=== PATIENT | female | born 1950 | race Native Hawaiian/Other Pacific Islander ===

== ENCOUNTER → 2023-02-04 10:50 | Outpatient (CLI) | payer OTHER, SELFPAY ==
--- NOTE | 2023-02-04 10:56 | DI.MRI.S_ITS ---
PROCEDURE: MR HEAD/BRAIN WO/W CON INDICATIONS: Cerebral infarction, unspecified TECHNIQUE: Noncontrast axial T1 spin echo, axial T2 fast spin echo, sagittal and axial FLAIR, coronal T2 fast spin echo, axial gradient echo, axial diffusion and ADC through the brain. After the administration of contrast, axial and coronal and sagittal 3D VIBE or T1 spin echo with fat saturation through the brain. COMPARISON: None. FINDINGS: Image quality: Excellent. CSF Spaces: Basal cisterns are patent. No extra-axial fluid collections. Ventricles are normal in size and shape. Brain: There is a ring-enhancing lesion in the left posterior insular and parietal operculum cortex. Lesion measures roughly 3.6 x 2.0 by 1.5 cm with mass effect and vigorous surrounding vasogenic edema. Vague ill-defined restricted diffusion noted within and surrounding the lesion, most consistent with dense cell packing. Mild mass effect present. No midline shift. No old blood products present. Underlying atrophy and confluent white matter chronic ischemic change present noted particularly in the right cerebral hemisphere. Brainstem and infratentorial structures unremarkable Skull and face: Calvarial marrow is normal in signal. Orbits appear normal. Bilateral intraocular lens replacements noted. Sinuses: Sinuses and mastoids appear clear. IMPRESSION: Left insular and parietal ring-enhancing lesion most consistent with aggressive appearing neoplasm. Less likely differential would include subacute infarct with and cortical pseudolaminar necrosis and luxury perfusion. Consider 4-6 week interval follow-up Approved by: Darrius Blakely M.D. on 02/04/2023 at 11:21
== END ==
PROVIDERS: PCP Physician Assistant Medical; Referring Provider Physician Assistant Medical; Visit Provider Physician Assistant Medical
DX: I63.9 Cerebral infarction, unspecified (principal); G93.9 Disorder of brain, unspecified
CPT/HCPCS: 70553; A9579

== ENCOUNTER → 2023-02-14 17:29 | Outpatient (CLI) | payer SELFPAY ==
--- NOTE | 2023-02-14 | DI.CT.S_ITS ---
PROCEDURE: CT HEAD/BRAIN WO CON INDICATIONS: abrasion of unspecified part of head TECHNIQUE: Noncontrast 4.5 mm thick angled axial sections acquired from the foramen magnum to the vertex, with coronal and sagittal reformats. For radiation dose reduction, the following was used: automated exposure control, adjustment of mA and/or kV according to patient size. COMPARISON: [facility], MR, MR HEAD/BRAIN WO/W CON, 02/04/2023, 11:06. FINDINGS: Image quality: Excellent. CSF spaces: Basal cisterns are patent. No extra-axial fluid collections. The ventricles are symmetric in size and shape. Brain: Ill-defined area mass effect in the left insular/parietal cortex with adjacent edema, unchanged compared to 02/04/2023.. There is cerebral volume loss for age, with resultant ventricular and sulcal prominence. There are periventricular and deep white matter chronic small vessel ischemic changes. There is intracranial internal carotid artery atherosclerosis. Skull and face: Calvarium and visualized facial bones appear intact, without suspicious lesions. Sinuses: Visualized sinuses and mastoids are clear. IMPRESSION: 1. No acute intracranial process, stable interval exam compared to 02/04/2023, noting masslike focus with vasogenic edema in the left insular and parietal cortex. 2. Moderate atrophy and chronic microvascular ischemic changes. A message with callback number was left for Phylicia Nabil on 02/14/2023 at 6:47 p.m who was not available at time of call. Dictated by: Catherine Sotelo M.D. on 02/14/2023 at 18:45 Approved by: Catherine Sotelo M.D. on 02/14/2023 at 18:49
== END ==
PROVIDERS: PCP Physician Assistant Medical; Visit Provider Physician Assistant Medical
DX: G93.6 Cerebral edema (principal); S00.91XA Abrasion of unspecified part of head, initial encounter; I65.29 Occlusion and stenosis of unspecified carotid artery; W19.XXXA Unspecified fall, initial encounter
CPT/HCPCS: 70450

== ENCOUNTER 2023-03-24 13:41 | Inpatient (IN) | payer OTHER, SELFPAY ==
[2023-03-24] VITALS (20 sets, daily range): BP systolic 143–180; BP diastolic 66–81; PULSE 60–88; RESP 12–24; TEMP 36.1–36.6; O2SAT 93–100; BMI 21.2
[2023-03-24] MEDS: PANTOPRAZOLE 40 MG VIAL 80 MG IV (14:12)
[2023-03-24 14:19] LABS: Add Manual Diff / Slide Review NO; Basophils Absolute Auto 0 /uL (0-100); Basophils Percent Auto 0.2 % (0-2); Eosinophils Absolute Auto 0 /uL (0-450); Hematocrit 44.2 % (36-46); Hemoglobin 14.6 g/dL (12.0-16.0); Lymphocytes Absolute Auto 300 /uL (1100-4500); Lymphocytes Percent Auto 1.6 % (25-40); Mean Corpuscular Hemoglobin 28.9 PG (26-34); Mean Corpuscular Volume 87.6 fL (80-100); Monocytes Absolute Auto 300 /uL (0-900); Monocytes Percent Auto 1.6 % (3-14); Neutrophils Absolute Auto 15800 /uL (1500-7000); Neutrophils Percent Auto 96.6 % (50-75); Platelet Count 140 X10^3/uL (150-400); Red Blood Cell Count 5.05 X10^6/uL (4.0-5.2); Red Cell Distribution Width 13.2 % (11.6-14.8); White Blood Cell Count 16.3 X10^3/uL (4.5-11.0)
--- NOTE | 2023-03-24 14:24 | PC.NURSE ---
pt shaking head yes and no to questions, daughter reports that she doesn't want to be here or be poked and probed; daughter asks this RN if we offer vitamin C infusions. daughter educated. pt on all monitoring equipment; currently denies pain/sob/cp/dizziness. pt denies needs/concerns. warm blanket offered, refused. call light within reach.
[2023-03-24 14:26] LABS: INR 0.8 (0.9-1.3); Prothrombin Time 9.4 SECONDS (9.4-12.5)
[2023-03-24 14:29] LABS: PTT Partial Thromboplastin Tim 20 SECONDS (25.1-36.5)
[2023-03-24 14:31] LABS: Alanine Aminotransferase 41 IU/L (<35); Albumin 3.5 g/dL (3.5-5.0); Albumin Globulin Ratio 1.3 (1.0-2.8); Alkaline Phosphatase 136 U/L (38-126); Aspartate Aminotransferase 36 IU/L (14-36); BUN Creatinine Ratio 44.5 (6-22); Bilirubin Total 1.9 mg/dL (0.2-1.3); Blood Urea Nitrogen 49 mg/dL (7-17); Calcium 9.2 mg/dL (8.4-10.2); Carbon Dioxide 27 mmol/L (22-32); Chloride 98 mmol/L (98-107); Estimated Glomerular Filt Rate 53 mL/min (>60); Globulin 2.7 g/dL (1.7-4.1); Glucose 353 mg/dL (80-110); HEMOLYSIS < 15 (0-50); Potassium 5.1 mmol/L (3.4-5.1); Sodium 130 mmol/L (137-145); Total Protein 6.2 g/dL (6.3-8.2)
--- NOTE | 2023-03-24 15:17 | PC.NURSE ---
BOX STRAPPER note: pt. requested assistance to the bathroom, this rehabilitation aide/scheduler procured a wheelchair and assisted pt. into wheelchair to bathroom. daughter at pt. side, assisted pt. in the restroom. An attempt was made to collect a urine specimen, however, pt. had already used the bathroom in the brief she was wearing. Gave a new brief to pt. daughter who remained in the bathroom with pt.
--- NOTE | 2023-03-24 15:46 | ED_ITS ---
HPI - GI Bleed General Chief complaint: GI Bleed Stated complaint: blood in urine/stools black Time Seen by Provider: 03/24/23 15:46 Source: family Mode of arrival: Wheelchair History of Present Illness HPI Narrative: Patient is a 72-year-old female who speaks Tagalog, daughter at bedside reports dark stool today. 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 She had an MRI here 02/04/2023 which did show a ring enhancing lesion with aggressive appearing neoplasm. She is been started on home physical therapy and speech therapy concerning for stroke. Daughter states that she seems to be more ?watts? than normal and she gets angry with caregivers and refuses medications at times. Does not seem any more somnolent or confused today. She noted that there was some very dark stool today concerning for blood. She has been taking aspirin and dexamethasone. She also has a history of a liver transplant for hepatitis-B and is on anti- rejection medications. Patient is resting comfortably. Related Data Home Medications Medication Instructions Recorded Confirmed amlodipine 2.5 mg tablet 2.5 mg PO DAILY blood pressure 03/24/23 03/24/23 aspirin 81 mg tablet 81 mg PO DAILY 03/24/23 03/24/23 dexamethasone 4 mg tablet 4 mg PO QID 03/24/23 03/24/23 entecavir 0.5 mg tablet 0.5 mg PO DAILY 03/24/23 03/24/23 ferrous sulfate 324 mg (65 mg 324 mg PO DAILY 03/24/23 03/24/23 iron) tablet,delayed release mycophenolate mofetil 500 mg tablet 500 mg PO BID 03/24/23 03/24/23 pantoprazole 40 mg tablet,delayed 40 mg PO DAILY 03/24/23 03/24/23 release polyethylene glycol 3350 17 gram 17 g PO DAILY PRN Constipation 03/24/23 03/24/23 oral powder packet (Miralax) rosuvastatin 10 mg tablet 10 mg PO QPM 03/24/23 03/24/23 sennosides 8.6 mg tablet (senna) 17.2 mg PO BID PRN Constipation 03/24/23 03/24/23 tacrolimus 0.5 mg capsule, 0.5 mg PO BID liver transplant 03/24/23 03/24/23 immediate-release ursodiol 250 mg tablet 250 mg PO BID 03/24/23 03/24/23 Allergies Allergy/AdvReac Type Severity Reaction Status Date / Time No Known Drug Allergies Allergy Verified 03/24/23 13:56 Patient History Medical History (Updated 03/24/23 @ 18:28 by Donna Fish DO) High cholesterol 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 Surgical History (Updated 03/24/23 @ 16:05 by Glenda Ho RN) H/O liver transplant Social History Smoking Status: Unknown if ever smoked Smoking Status: Unknown if ever smoked alcohol intake frequency: holidays/special occasions only Substance Use Type: does not use Exam Initial Vital Signs Initial Vital Signs: Vital Signs Temperature 97.8 F 03/24/23 13:43 Pulse Rate 88 03/24/23 13:43 Respiratory Rate 14 03/24/23 13:43 Blood Pressure 156/72 H 03/24/23 13:43 Pulse Oximetry 93 03/24/23 13:43 Oxygen Delivery Method Room Air 03/24/23 13:43 GENERAL: Alert comfortable appearing 72-year-old female HEENT: Head atraumatic,EOMI, pupils reactive, face symmetric, moist mucous membranes CARDIOVASCULAR: Regular rate and rhythm without murmurs, rubs or gallops. RESPIRATORY: Breath sounds equal bilaterally, no wheezes rales or rhonchi. ABDOMEN: Soft, nontender. Normoactive bowel sounds all 4 quadrants. No guarding or rebound. RECTAL: Dark stool hemoccult positive EXTREMITIES: Normal range of motion, no clubbing or edema. Neurovascularly intact NEUROLOGICAL: Facial droop moving all extremities SKIN: Warm, dry, no laceration, no petechiae, no rashes or lesions. Course Orders Ordered: ED Orders 03/24/23 14:00 Complete Blood Count AUTO DIFF Stat Comprehensive Metabolic Panel Stat Lactate (Lactic Acid) Stat MAG [Magnesium] Stat PTT Partial Thromboplastin Kurt Stat Procalcitonin Stat Prothrombin Time INR Stat Troponin & CK Cardiac Panel Stat Type and Screen Stat 03/24/23 14:07 EKG-12 Lead Stat 03/24/23 15:26 Ictotest Urine Stat Urinalysis and Microscopic Stat Urine Culture Stat 03/24/23 15:58 CT abdomen pelvis w con Stat CT head/brain wo con Stat 03/24/23 17:23 Blood Culture Stat Ondansetron HCl (Ondansetron 4 Mg/2 Ml Inj) 4 mg IV NOW PRN PRN Reason: Nausea And Vomiting Discontinued Medications Dexamethasone (Dexamethasone 4 Mg/Ml Vial) 4 mg IV NOW ONE Stop: 03/24/23 17:00 Last Admin: 03/24/23 17:12 Dose: 4 mg Documented By: CAITLIN Ceftriaxone Sodium 1,000 mg/ (Sodium Chloride) 100 mls @ 200 mls/hr IV NOW ONE Stop: 03/24/23 16:48 Last Infusion: 03/24/23 17:57 Dose: Infused Documented By: Admin: 03/24/23 17:25 Dose: 200 mls/hr Documented By: CAITLIN Pantoprazole Sodium (Pantoprazole 40 Mg Vial) 80 mg IV NOW ONE Stop: 03/24/23 13:56 Last Admin: 03/24/23 14:12 Dose: 80 mg Documented By: TORRI Vital Signs Vital signs: Vital Signs - 8 hr 03/24/23 13:43 03/24/23 13:54 03/24/23 13:54 Temperature 97.8 F Pulse Rate 88 78 Respiratory Rate 14 Blood Pressure 156/72 H 156/72 H Pulse Oximetry 93 93 Oxygen Delivery Method Room Air 03/24/23 14:00 03/24/23 14:00 03/24/23 14:30 Temperature Pulse Rate 71 Respiratory Rate 24 Blood Pressure 151/67 H 143/66 H Pulse Oximetry 99 Oxygen Delivery Method 03/24/23 14:30 03/24/23 15:00 03/24/23 15:00 Temperature Pulse Rate 66 68 Respiratory Rate 15 17 Blood Pressure 155/72 H Pulse Oximetry 100 98 Oxygen Delivery Method 03/24/23 15:32 03/24/23 15:34 03/24/23 15:34 Temperature Pulse Rate 70 60 Respiratory Rate 24 22 Blood Pressure 145/67 H Pulse Oximetry 100 99 Oxygen Delivery Method Room Air 03/24/23 16:00 03/24/23 16:00 03/24/23 16:21 Temperature Pulse Rate 66 Respiratory Rate 12 Blood Pressure 146/66 H 180/81 H Pulse Oximetry 99 Oxygen Delivery Method Room Air 03/24/23 16:21 03/24/23 16:30 03/24/23 16:30 Temperature Pulse Rate 72 67 Respiratory Rate 13 16 Blood Pressure 171/73 H Pulse Oximetry 99 98 Oxygen Delivery Method Room Air 03/24/23 17:00 03/24/23 17:00 03/24/23 17:30 Temperature Pulse Rate 71 74 Respiratory Rate 16 22 Blood Pressure 151/74 H Pulse Oximetry 98 100 Oxygen Delivery Method Room Air 03/24/23 17:30 03/24/23 18:00 03/24/23 18:00 Temperature Pulse Rate 70 Respiratory Rate 21 Blood Pressure 150/70 H 155/74 H Pulse Oximetry 99 Oxygen Delivery Method Room Air MDM - GI Bleed Lab Data 03/24/23 14:00 03/24/23 14:00 Labs: Lab Results 03/24/23 03/24/23 Range/Units 14:00 15:26 WBC 16.3 H (4.5-11.0) X10^3/uL RBC 5.05 (4.0-5.2) X10^6/uL Hgb 14.6 (12.0-16.0) g/dL Hct 44.2 (36-46) % MCV 87.6 (80-100) fL MCH 28.9 (26-34) PG MCHC 33.0 (30-36) % RDW 13.2 (11.6-14.8) % Plt Count 140 L (150-400) X10^3/uL Neut % (Auto) 96.6 H (50-75) % Lymph % (Auto) 1.6 L (25-40) % Pershing % (Auto) 1.6 L (3-14) % Eos % (Auto) 0.0 L (2-4) % Baso % (Auto) 0.2 (0-2) % Neut # (Auto) 89323 H (3761-8462) /uL Lymph # (Auto) 300 L (0613-9835) /uL Pershing # (Auto) 300 (0-900) /uL Eos # (Auto) 0 (0-450) /uL Baso # (Auto) 0 (0-100) /uL PT 9.4 (9.4-12.5) SECONDS INR 0.8 L (0.9-1.3) APTT 20 L (25.1-36.5) SECONDS Sodium 130 L (137-145) mmol/L Potassium 5.1 (3.4-5.1) mmol/L Chloride 98 (98-107) mmol/L Carbon Dioxide 27 (22-32) mmol/L BUN 49 H (7-17) mg/dL Creatinine 1.10 H (0.52-1.04) mg/dL Estimated GFR 53 L (>60) mL/min BUN/Creatinine Ratio 44.5 H (6-22) Glucose 353 H (80-110) mg/dL Lactate 2.2 H (0.7-2.1) mmol/L Calcium 9.2 (8.4-10.2) mg/dL Magnesium 3.2 H (1.6-2.3) mg/dL Total Bilirubin 1.9 H (0.2-1.3) mg/dL AST 36 (14-36) IU/L ALT 41 H (<35) IU/L Alkaline Phosphatase 136 H (38-126) U/L Total Creatine Kinase 61 (30-135) U/L Troponin I 0.021 (0.01-0.034) ng/mL Total Protein 6.2 L (6.3-8.2) g/dL Albumin 3.5 (3.5-5.0) g/dL Globulin 2.7 (1.7-4.1) g/dL Albumin/Globulin Ratio 1.3 (1.0-2.8) Procalcitonin 0.14 (<0.5) ng/mL Urine Color Yellow Urine Appearance Cloudy Urine pH 5.0 (4.5-8.0) Ur Specific Dinosaur 1.025 (1.000-1.035) Urine Protein Negative (Negative) Urine Glucose (UA) 3+ H (Negative) g/dL Urine Ketones Trace H (NEGATIVE) Urine Occult Blood 3+ H (Negative) Urine Nitrate Positive H (Negative) Urine Bilirubin 1+ H (NEGATIVE) Ur Bilirubin Confirm TNP Urine Urobilinogen 1.0 (0.2) E.U./dL Ur Leukocyte Esterase 2+ H (NEGATIVE) Urine RBC 10-30/hpf H (0-5/HPF) Urine WBC 10-30/hpf H (0-5/HPF) Ur Squamous Epith Cells 5-10 /hpf H (0-5/HPF) Urine Bacteria Moderate (10-30) H (None) RBC Casts 1-5/lpf H (None) WBC Casts 1-5/lpf H (None) Ur Culture Indicated? Specimen cultured Blood Type B Positive Antibody Screen Negative Imaging Data CT scan - abdomen/pelvis: Radiologist's Impression: PROCEDURE: CT ABDOMEN PELVIS W CON INDICATIONS: gi bleed TECHNIQUE: After the administration of intravenous contrast, axial sections acquired from the lung bases to the pubic symphysis. Coronal and sagittal reformats were performed. For radiation dose reduction, the following was used: automated exposure control, adjustment of mA and/or kV according to patient size. COMPARISON: None. FINDINGS: Image quality: Excellent. Lung bases: Unremarkable. Heart: No significant findings. ABDOMEN: Liver: Unremarkable. Gallbladder: Not identified. Biliary ducts: Mild central biliary ductal dilation and prominence of the common hepatic duct. Pancreas: Unremarkable. Spleen: Unremarkable. Adrenal Glands: Unremarkable. Kidneys and Ureters: Unremarkable. Stomach and Bowel: Stomach, small bowel loops, and colon are unremarkable. Scattered diverticula. No evidence of extravasation. Peritoneum: No abnormal intraperitoneal fluid. No free air. Ventral Wall: No hernias. Abdominal Nodes: No retroperitoneal or mesenteric adenopathy by size criteria. Vessels: Aorta and inferior vena cava are normal in size. PELVIS: Pelvic Organs: Unremarkable. Bladder: Emphysematous changes of the bladder wall. Pelvic Nodes: No enlarged lymph nodes. Miscellaneous: No hernias are seen. Bones: Unremarkable. IMPRESSION: Emphysematous cystitis. No arterial extravasation identified. Dr. Pina discussed the above findings with the ordering provider at 3:48 p.m. [place] time 03/24/2023 Dictated by: Elton Pina M.D. on 03/24/2023 at 15:36 CT scan - head: Radiologist's Impression: PROCEDURE: CT HEAD/BRAIN WO CON INDICATIONS: known glioblastoma TECHNIQUE: Noncontrast 4.5 mm thick angled axial sections acquired from the foramen magnum to the vertex, with coronal and sagittal reformats. For radiation dose reduction, the following was used: automated exposure control, adjustment of mA and/or kV according to patient size. COMPARISON: [place], PET/CT SKULL BASE TO MID THIGH, 06/13/2013, 10:49. [facility], MR, MR HEAD/BRAIN WO/W CON, 02/04/2023, 11:06. [facility], CT, CT HEAD/BRAIN WO CON, 02/14/2023, 17:52. FINDINGS: Image quality: Excellent. CSF spaces: Basal cisterns are patent. No extra-axial fluid collections. The ventricles are symmetric in size and shape. Brain: There is a 2.1 x 2.7 cm mass in the left parietal lobe. There is vasogenic edema in the left hemisphere. No mass effect or midline shift. No intracranial bleeds. There is cerebral volume loss for age, with resultant ventricular and sulcal prominence. There are periventricular and deep white matter chronic small vessel ischemic changes. There is intracranial internal carotid artery atherosclerosis. Skull and face: Calvarium and visualized facial bones appear intact, without suspicious lesions. Sinuses: Visualized sinuses and mastoids are clear. IMPRESSION: 1. No acute intracranial pathology. 2. A 2.1 x 2.7 cm mass in the left parietal lobe with marked vasogenic edema. Overall, there is no significant change from the last exam. No midline shift. Dictated by: Yang Alvarez M.D. on 03/24/2023 at 16:27 ECG Data Interpretation: Sinus rhythm rate 72 UT interval 128 QRS 84 QTC 422 no changes although possible repolarization no depressions no T-wave inversions no priors to compare MDM Narrative Medical decision making narrative: Patient is 72-year-old female presents today with darkened stool. She has new diagnosis of presumed glioblastoma by awaiting biopsy. Elevated BUN creatinine ratio with a BUN of 49 creatinine of 1.1 consistent with upper GI bleed. Vitals are stable hemoglobin hematocrit are stable. Abdominal CT done with due to recent cancer diagnosis but at and GI bleeding but abdomen is soft nontender. CT shows an emphysematous bladder. She does have nitrates urinalysis consistent with UTI. Leukocytosis 16 with elevated lactate of 2.2. Concern for UTI as well. Blood pressure has been stable without tachycardia or fever. Blood cultures are pending. Patient is on nuclear monitoring technician she does some minor arrhythmias occasionally no prior history of acute coronary syndrome. Patient is given a dose of Rocephin Discussed case with Dr. Rodriguez about emphysematous bladder reports would caution against Bueno catheter and treat with antibiotics. Dr. Denis consulted in regards to upper GI bleed. Reports that they can do an EGD tomorrow. Dr. Melendez updated on patient's symptoms test results and accepts patient Discharge Plan Departure Patient Disposition: Admitted as Observation Clinical Impression: Acute upper GI bleed, Acute UTI, Glioblastoma
--- NOTE | 2023-03-24 15:58 | DI.CT.S_ITS ---
PROCEDURE: CT ABDOMEN PELVIS W CON INDICATIONS: gi bleed TECHNIQUE: After the administration of intravenous contrast, axial sections acquired from the lung bases to the pubic symphysis. Coronal and sagittal reformats were performed. For radiation dose reduction, the following was used: automated exposure control, adjustment of mA and/or kV according to patient size. COMPARISON: None. FINDINGS: Image quality: Excellent. Lung bases: Unremarkable. Heart: No significant findings. ABDOMEN: Liver: Unremarkable. Gallbladder: Not identified. Biliary ducts: Mild central biliary ductal dilation and prominence of the common hepatic duct. Pancreas: Unremarkable. Spleen: Unremarkable. Adrenal Glands: Unremarkable. Kidneys and Ureters: Unremarkable. Stomach and Bowel: Stomach, small bowel loops, and colon are unremarkable. Scattered diverticula. No evidence of extravasation. Peritoneum: No abnormal intraperitoneal fluid. No free air. Ventral Wall: No hernias. Abdominal Nodes: No retroperitoneal or mesenteric adenopathy by size criteria. Vessels: Aorta and inferior vena cava are normal in size. PELVIS: Pelvic Organs: Unremarkable. Bladder: Emphysematous changes of the bladder wall. Pelvic Nodes: No enlarged lymph nodes. Miscellaneous: No hernias are seen. Bones: Unremarkable. IMPRESSION: Emphysematous cystitis. No arterial extravasation identified. Dr. Pina discussed the above findings with the ordering provider at 3:48 p.m. [place] time 03/24/2023 Dictated by: Elton Pina M.D. on 03/24/2023 at 15:36 Approved by: Elton Pina M.D. on 03/24/2023 at 15:49
--- NOTE | 2023-03-24 15:58 | DI.CT.S_ITS ---
PROCEDURE: CT HEAD/BRAIN WO CON INDICATIONS: known glioblastoma TECHNIQUE: Noncontrast 4.5 mm thick angled axial sections acquired from the foramen magnum to the vertex, with coronal and sagittal reformats. For radiation dose reduction, the following was used: automated exposure control, adjustment of mA and/or kV according to patient size. COMPARISON: NM, PET/CT SKULL BASE TO MID THIGH, 06/13/2013, 10:49. [facility], MR, MR HEAD/BRAIN WO/W CON, 02/04/2023, 11:06. [facility], CT, CT HEAD/BRAIN WO CON, 02/14/2023, 17:52. FINDINGS: Image quality: Excellent. CSF spaces: Basal cisterns are patent. No extra-axial fluid collections. The ventricles are symmetric in size and shape. Brain: There is a 2.1 x 2.7 cm mass in the left parietal lobe. There is vasogenic edema in the left hemisphere. No mass effect or midline shift. No intracranial bleeds. There is cerebral volume loss for age, with resultant ventricular and sulcal prominence. There are periventricular and deep white matter chronic small vessel ischemic changes. There is intracranial internal carotid artery atherosclerosis. Skull and face: Calvarium and visualized facial bones appear intact, without suspicious lesions. Sinuses: Visualized sinuses and mastoids are clear. IMPRESSION: 1. No acute intracranial pathology. 2. A 2.1 x 2.7 cm mass in the left parietal lobe with marked vasogenic edema. Overall, there is no significant change from the last exam. No midline shift. Dictated by: Yang Alvarez M.D. on 03/24/2023 at 16:27 Approved by: Yang Alvarez M.D. on 03/24/2023 at 16:33
[2023-03-24 16:00] LABS: Creatine Kinase 61 U/L (30-135); Magnesium 3.2 mg/dL (1.6-2.3)
[2023-03-24 16:08] LABS: Appearance Urine UA CLOUDY; Bilirubin Urine UA 1+ (NEGATIVE); Color Urine UA YELLOW; Glucose Urine UA 3+ g/dL (Negative); Ketones Urine UA TRACE (NEGATIVE); Leukocyte Esterase Urine UA 2+ (NEGATIVE); Nitrite Urine UA POSITIVE (Negative); Occult Blood Urine UA 3+ (Negative); Protein Urine UA NEGATIVE (Negative); Specific Gravity Urine UA 1.025 (1.000-1.035)
[2023-03-24 16:11] LABS: Bacteria Urine Moderate (10-30); Culture Indicated Urine Specimen Cultured; RBC Urine 10-30/HPF (0-5/HPF); Red Blood Cell Casts Urine 1-5/LPF; Squamous Epithelial Cell Urine 5-10 /HPF (0-5/HPF); WBC Urine 10-30/HPF (0-5/HPF); White Blood Cell Casts Urine 1-5/LPF
[2023-03-24 16:13] LABS: Troponin I 0.021 ng/mL (0.01-0.034)
[2023-03-24] MEDS: DEXAMETHASONE 4 MG/ML VIAL IV (17:12)
[2023-03-24] MEDS: cefTRIAXone 1,000 MG in SODIUM CHLORIDE 0.9% 100 ML 200 MG IV (17:25)
[2023-03-24 17:39] LABS: Lactate (Lactic Acid) 2.2 mmol/L (0.7-2.1)
[2023-03-24 17:57] LABS: Procalcitonin 0.14 ng/mL (<0.5)
--- NOTE | 2023-03-24 18:36 | PC.NURSE ---
Noted short (< 20 seconds) of what appears to be afib rvr vs. sinus tach. Returned to sinus rhythm @ 67.
[2023-03-24 19:09] LABS: Reflexed Lactate in 2 Hours Y
[2023-03-24 19:36] LABS: Lactate 2HR (Lactic Acid Rflx) 1.4 mmol/L (0.7-2.1)
--- NOTE | 2023-03-24 22:05 | P.HP_ITS ---
History of Present Illness History of Present Illness Date Patient Seen: 03/24/23 Time Patient Seen: 22:05 Chief complaint: blood in urine/stools black Narrative: The pt was brought to the ER by her daughter who care for her due to having black stools when she went to the bathroom today. The pt only speaks Tagalog and family were not at the bedside during my interview. She was very confused and unable to answer any questions or follow commands. The pt's medical history is significant for having a liver transplant for chronic Hepatitis B and on immunosuppresents now and recently was diagnosed with a brain tumor, a aggressive form of gliosis. MRI in January showed a ring enhancing lesion and todays CT scan of the head reviewed by myself showed a 2.1 X 2.7 cm left periatal lesion significantly larger with surrounding edema. 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 Surgical History (Updated 03/24/23 @ 16:05 by Glenda Ho RN) H/O liver transplant Social History Smoking Status: Unknown if ever smoked Meds Home Medications and Allergies Home Medications Medication Instructions Recorded Confirmed Type amlodipine 2.5 mg tablet 2.5 mg PO DAILY blood pressure 03/24/23 03/24/23 History aspirin 81 mg tablet 81 mg PO DAILY 03/24/23 03/24/23 History dexamethasone 4 mg tablet 4 mg PO QID 03/24/23 03/24/23 History entecavir 0.5 mg tablet 0.5 mg PO DAILY 03/24/23 03/24/23 History ferrous sulfate 324 mg (65 mg 324 mg PO DAILY 03/24/23 03/24/23 History iron) tablet,delayed release mycophenolate mofetil 500 mg tablet 500 mg PO BID 03/24/23 03/24/23 History pantoprazole 40 mg tablet,delayed 40 mg PO DAILY 03/24/23 03/24/23 History release polyethylene glycol 3350 17 gram 17 g PO DAILY PRN Constipation 03/24/23 03/24/23 History oral powder packet (Miralax) rosuvastatin 10 mg tablet 10 mg PO QPM 03/24/23 03/24/23 History sennosides 8.6 mg tablet (senna) 17.2 mg PO BID PRN Constipation 03/24/23 03/24/23 History tacrolimus 0.5 mg capsule, 0.5 mg PO BID liver transplant 03/24/23 03/24/23 History immediate-release ursodiol 250 mg tablet 250 mg PO BID 03/24/23 03/24/23 History Allergies Allergy/AdvReac Type Severity Reaction Status Date / Time No Known Drug Allergies Allergy Verified 03/24/23 13:56 Exam Vital Signs (past 8 hours): - 03/24/23 14:30 03/24/23 14:30 03/24/23 15:00 Pulse Rate 66 68 Respiratory Rate 15 17 Blood Pressure 143/66 H Pulse Oximetry 100 98 Oxygen Delivery Method 03/24/23 15:00 03/24/23 15:32 03/24/23 15:34 Pulse Rate 70 60 Respiratory Rate 24 22 Blood Pressure 155/72 H Pulse Oximetry 100 99 Oxygen Delivery Method Room Air 03/24/23 15:34 03/24/23 16:00 03/24/23 16:00 Pulse Rate 66 Respiratory Rate 12 Blood Pressure 145/67 H 146/66 H Pulse Oximetry 99 Oxygen Delivery Method Room Air 03/24/23 16:21 03/24/23 16:21 03/24/23 16:30 Pulse Rate 72 Respiratory Rate 13 Blood Pressure 180/81 H 171/73 H Pulse Oximetry 99 Oxygen Delivery Method 03/24/23 16:30 03/24/23 17:00 03/24/23 17:00 Pulse Rate 67 71 Respiratory Rate 16 16 Blood Pressure 151/74 H Pulse Oximetry 98 98 Oxygen Delivery Method Room Air Room Air 03/24/23 17:30 03/24/23 17:30 03/24/23 18:00 Pulse Rate 74 70 Respiratory Rate 22 21 Blood Pressure 150/70 H Pulse Oximetry 100 99 Oxygen Delivery Method Room Air 03/24/23 18:00 03/24/23 18:30 03/24/23 18:30 Pulse Rate 68 Respiratory Rate 16 Blood Pressure 155/74 H 147/81 H Pulse Oximetry 99 Oxygen Delivery Method 03/24/23 19:00 03/24/23 19:00 03/24/23 19:30 Pulse Rate 71 Respiratory Rate 17 Blood Pressure 166/76 H 154/79 H Pulse Oximetry 99 Oxygen Delivery Method 03/24/23 19:30 12/09/23 20:00 03/24/23 20:00 Pulse Rate 71 74 Respiratory Rate 13 14 Blood Pressure 152/78 H Pulse Oximetry 98 98 Oxygen Delivery Method Room Air 03/24/23 20:30 03/24/23 20:30 Pulse Rate 70 Respiratory Rate 14 Blood Pressure 165/79 H Pulse Oximetry 98 Oxygen Delivery Method Room Air Oxygen Delivery Method Room Air Const General: combative and disheveled Resp Auscultation: clear to auscultation bilaterally Cardio Rate: regular rate Rhythm: regular rhythm Neuro General: patient confused Objective Labs 03/24/23 14:00 03/24/23 14:00 Labs: Laboratory Results - last 24 hr 03/24/23 03/24/23 03/24/23 14:00 15:26 17:23 WBC 16.3 H RBC 5.05 Hgb 14.6 Hct 44.2 MCV 87.6 MCH 28.9 MCHC 33.0 RDW 13.2 Plt Count 140 L Neut % (Auto) 96.6 H Lymph % (Auto) 1.6 L [place] % (Auto) 1.6 L Eos % (Auto) 0.0 L Baso % (Auto) 0.2 Neut # (Auto) 18551 H Lymph # (Auto) 300 L [place] # (Auto) 300 Eos # (Auto) 0 Baso # (Auto) 0 PT 9.4 INR 0.8 L APTT 20 L Sodium 130 L Potassium 5.1 Chloride 98 Carbon Dioxide 27 BUN 49 H Creatinine 1.10 H Estimated GFR 53 L BUN/Creatinine Ratio 44.5 H Glucose 353 H Lactate 2.2 H 1.4 Calcium 9.2 Magnesium 3.2 H Total Bilirubin 1.9 H AST 36 ALT 41 H Alkaline Phosphatase 136 H Total Creatine Kinase 61 Troponin I 0.021 Total Protein 6.2 L Albumin 3.5 Globulin 2.7 Albumin/Globulin Ratio 1.3 Procalcitonin 0.14 Urine Color Yellow Urine Appearance Cloudy Urine pH 5.0 Ur Specific [place] 1.025 Urine Protein Negative Urine Glucose (UA) 3+ H Urine Ketones Trace H Urine Occult Blood 3+ H Urine Nitrate Positive H Urine Bilirubin 1+ H Ur Bilirubin Confirm TNP Urine Urobilinogen 1.0 Ur Leukocyte Esterase 2+ H Urine RBC 10-30/hpf H Urine WBC 10-30/hpf H Ur Squamous Epith Cells 5-10 /hpf H Urine Bacteria Moderate (10-30) H RBC Casts 1-5/lpf H WBC Casts 1-5/lpf H Ur Culture Indicated? 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 No jimenez catheter for now until culture results are back. THe pt is very confused at this time, CT head reviewed showing the enlarging mass in the left parietal lobe. CHecking ammonia but labs reviewed which showed a low sodium, which could account for the confusion. Holding the cellcept due to her UTI and confusion, Gen surgery has been consulted through the ER for a EGD in the am, she will be NPO after midnight, current hgb is stable at 14.6, recheck in am.
[2023-03-24] MEDS: SODIUM CHLORIDE 0.9% 1,000 ML 125 ML IV (23:57)
[2023-03-25] VITALS (14 sets, daily range): BP systolic 124–182; BP diastolic 55–82; PULSE 53–73; RESP 11–18; TEMP 36–37.3; O2SAT 95–100; BMI 20.5
--- NOTE | 2023-03-25 | PATH_ITS ---
[facility] Accession Number: [id number] No. of containers..03 Tissue . 01 Material submitted: . PART A: duodenum - DUODENAL PART B: stomach - ANTRUM PART C: FUNDUS - FUNDUS . 01 Diagnosis: A. Duodenum, Biopsy: Duodenal mucosa with no diagnostic abnormality. Negative for active inflammation, features of sprue, dysplasia, or malignancy. . B. Stomach, Antrum, Biopsy: Antral mucosa with mild chronic inflammation and features suggestive of acute erosive gastritis. Negative for Helicobacter by immunohistochemistry. Negative for intestinal metaplasia. Negative for dysplasia and malignancy. . C. Stomach, Fundus, Biopsy: Body type mucosa with mild chronic gastritis and embedded non-polarizable foreign material positive for iron by iron stain. Negative for Helicobacter by immunohistochemistry. Negative for intestinal metaplasia. Negative for dysplasia and malignancy. [facility] 04/04/2023 1620 Local . 01 Electronically signed: . Lizz Acevedo MD, Pathologist NPI- [id number] . 01 Gross description: . Part A: DUODENAL: Received in formalin are 3 fragment(s) of mon, soft tissue measuring 0.1 x 0.1 x 0.1 cm to 0.3 x 0.3 x 0.2 cm submitted entirely in 1 cassette(s) Part B: ANTRUM: Received in formalin are 4 fragment(s) of mon, soft tissue measuring 0.1 x 0.1 x 0.1 cm to 0.3 x 0.2 x 0.2 cm submitted entirely in 1 cassette(s) Part C: FUNDUS: Received in formalin are 4 fragment(s) of mon, soft tissue measuring 0.1 x 0.1 x 0.1 cm to 0.3 x 0.2 x 0.2 cm submitted entirely in 1 cassette(s) /JUAN 03/26/2023 2240 Local . 01 Microscopic: . B. An immunohistochemical stain was performed to evaluate for Helicobacter organisms and is negative. The control stain showed appropriate reactivity. . C. An immunohistochemical stain was performed to evaluate for Helicobacter organisms and is negative. The control stain showed appropriate reactivity. . An iron stain was performed to evaluate nonpolarizable material identified on the H/E stain and is positive for iron. The control stain showed appropriate reactivity. . . * This test was developed and its performance characteristics determined by [facility]. It has not been cleared or approved by the U.S. Food and Drug Administration. The FDA has determined that such clearance or approval is not necessary. This test is used for clinical purposes. It should not be regarded as investigational or for research. . 01 Pathologist provided ICD-10: R10.9, K29.50 . 01 CPT . 725437, 891040, 463613, Y27530, 668168 Specimen Comment: A courtesy copy of this report has been sent to [phone] Performed at: 01 [facility] [address] [place] [address], [place], [place] [id number] MD Tito Hanley MD Phone: [phone]
--- NOTE | 2023-03-25 01:45 | PC.NURSE ---
shiftman: Patient arrived onto the floor from the ED @ 2044, ambulated from stretcher to bed w/ 1 PA. Patient is alert, confused, and Tagalog-speaking. VSS, hypertensive (164/72), HR 64, O2 98% on RA. When asked if she had any pain, pt stated i'm fine. Unable to follow commands. Cleaned up patient & changed into gown, pt had small black smear in brief w/ urinary incontinence. Pt experienced pain when wiping the rectal area, no open area/sores noted. IV in LAC infusing NS @125/hr. NPO for EGD in the morning. Called daughter (Day) who assisted in providing information for the admission assessment. Day requested to be updated in the future regarding patient's care ([phone]). Call-light within reach, fall precautions in place.
[2023-03-25 04:56] LABS: Add Manual Diff / Slide Review NO; Basophils Absolute Auto 0 /uL (0-100); Basophils Percent Auto 0.2 % (0-2); Eosinophils Absolute Auto 0 /uL (0-450); Hematocrit 38.7 % (36-46); Hemoglobin 13.1 g/dL (12.0-16.0); Lymphocytes Absolute Auto 300 /uL (1100-4500); Lymphocytes Percent Auto 3.1 % (25-40); Mean Corpuscular HGB Conc 33.9 % (30-36); Mean Corpuscular Hemoglobin 29.5 PG (26-34); Monocytes Absolute Auto 300 /uL (0-900); Monocytes Percent Auto 3.1 % (3-14); Neutrophils Absolute Auto 9200 /uL (1500-7000); Neutrophils Percent Auto 93.6 % (50-75); Platelet Count 108 X10^3/uL (150-400); Red Blood Cell Count 4.46 X10^6/uL (4.0-5.2); Red Cell Distribution Width 12.8 % (11.6-14.8); White Blood Cell Count 9.8 X10^3/uL (4.5-11.0)
[2023-03-25 05:03] LABS: INR 0.9 (0.9-1.3); Prothrombin Time 10.2 SECONDS (9.4-12.5)
[2023-03-25 05:08] LABS: Ammonia (NH3) < 9 umol/L (9-30)
[2023-03-25 05:09] LABS: Alanine Aminotransferase 36 IU/L (<35); Albumin 2.9 g/dL (3.5-5.0); Albumin Globulin Ratio 1.2 (1.0-2.8); Alkaline Phosphatase 107 U/L (38-126); Aspartate Aminotransferase 25 IU/L (14-36); Bilirubin Total 1.4 mg/dL (0.2-1.3); Blood Urea Nitrogen 41 mg/dL (7-17); Calcium 8.9 mg/dL (8.4-10.2); Carbon Dioxide 27 mmol/L (22-32); Chloride 104 mmol/L (98-107); Estimated Glomerular Filt Rate 56 mL/min (>60); Globulin 2.5 g/dL (1.7-4.1); Glucose 231 mg/dL (80-110); HEMOLYSIS < 15 (0-50); Potassium 4.9 mmol/L (3.4-5.1); Sodium 133 mmol/L (137-145); Total Protein 5.4 g/dL (6.3-8.2)
--- NOTE | 2023-03-25 08:10 | PM.PN.1 ---
Subjective Subjective Interval history: Underwent EGD which showed small non-bleeding gastric ulcers. Hgb has been stable. Spoke with daughter who will pick patient up late tomorrow for discharge after work. Exam Vital Signs (past 8 hours): GEN: no acute distress, sleeping HEENT: moist mucous membranes, PERRL NECK: trachea midline, no JVD CV: regular rate and rhythm, no murmurs PULM: clear bilaterally ABD: soft, nontender, nondistended, no organomegaly EXT: warm and well perfused with no edema NEURO: confused, no focal deficits Objective Labs 03/25/23 04:40 03/25/23 04:40 Labs: Laboratory Results - last 24 hr 03/24/23 03/24/23 03/24/23 14:00 15:26 17:23 WBC 16.3 H RBC 5.05 Hgb 14.6 Hct 44.2 MCV 87.6 MCH 28.9 MCHC 33.0 RDW 13.2 Plt Count 140 L Neut % (Auto) 96.6 H Lymph % (Auto) 1.6 L [place] % (Auto) 1.6 L Eos % (Auto) 0.0 L Baso % (Auto) 0.2 Neut # (Auto) 90604 H Lymph # (Auto) 300 L [place] # (Auto) 300 Eos # (Auto) 0 Baso # (Auto) 0 PT 9.4 INR 0.8 L APTT 20 L Sodium 130 L Potassium 5.1 Chloride 98 Carbon Dioxide 27 BUN 49 H Creatinine 1.10 H Estimated GFR 53 L BUN/Creatinine Ratio 44.5 H Glucose 353 H Lactate 2.2 H 1.4 Calcium 9.2 Magnesium 3.2 H Total Bilirubin 1.9 H AST 36 ALT 41 H Alkaline Phosphatase 136 H Ammonia Total Creatine Kinase 61 Troponin I 0.021 Total Protein 6.2 L Albumin 3.5 Globulin 2.7 Albumin/Globulin Ratio 1.3 Procalcitonin 0.14 Urine Color Yellow Urine Appearance Cloudy Urine pH 5.0 Ur Specific [place] 1.025 Urine Protein Negative Urine Glucose (UA) 3+ H Urine Ketones Trace H Urine Occult Blood 3+ H Urine Nitrate Positive H Urine Bilirubin 1+ H Ur Bilirubin Confirm TNP Urine Urobilinogen 1.0 Ur Leukocyte Esterase 2+ H Urine RBC 10-30/hpf H Urine WBC 10-30/hpf H Ur Squamous Epith Cells 5-10 /hpf H Urine Bacteria Moderate (10-30) H RBC Casts 1-5/lpf H WBC Casts 1-5/lpf H Ur Culture Indicated? Specimen cultured Blood Type B Positive Antibody Screen Negative 03/25/23 04:40 WBC 9.8 RBC 4.46 Hgb 13.1 Hct 38.7 MCV 87.0 MCH 29.5 MCHC 33.9 RDW 12.8 Plt Count 108 L Neut % (Auto) 93.6 H Lymph % (Auto) 3.1 L [place] % (Auto) 3.1 Eos % (Auto) 0.0 L Baso % (Auto) 0.2 Neut # (Auto) 9200 H Lymph # (Auto) 300 L [place] # (Auto) 300 Eos # (Auto) 0 Baso # (Auto) 0 PT 10.2 INR 0.9 APTT Sodium 133 L Potassium 4.9 Chloride 104 Carbon Dioxide 27 BUN 41 H Creatinine 1.05 H Estimated GFR 56 L BUN/Creatinine Ratio 39.0 H Glucose 231 H D Lactate Calcium 8.9 Magnesium Total Bilirubin 1.4 H AST 25 ALT 36 H Alkaline Phosphatase 107 Ammonia < 9 L Total Creatine Kinase Troponin I Total Protein 5.4 L Albumin 2.9 L Globulin 2.5 Albumin/Globulin Ratio 1.2 Procalcitonin Urine Color Urine Appearance Urine pH Ur Specific [place] Urine Protein Urine Glucose (UA) Urine Ketones Urine Occult Blood Urine Nitrate Urine Bilirubin Ur Bilirubin Confirm Urine Urobilinogen Ur Leukocyte Esterase Urine RBC Urine WBC Ur Squamous Epith Cells Urine Bacteria RBC Casts WBC Casts Ur Culture Indicated? 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 Now on PPI BID. Aspirin stopped. Cannot stop decadron due to brain tumor. Daughter updated over phone. Will dc tomorrow 03/26 on PPI.
[2023-03-25] MEDS: INSULIN LISPRO 100 UNIT/ML 3ML VIAL SUBCUT ×3 (09:29→17:27)
--- NOTE | 2023-03-25 09:30 | SUR.HOLD ---
PACU nurse, anesthesiology and provider obtaining verbal consent for procedure of EGD and anesthesia from daughter of patient, Day, over the telephone, due to patient's confusion and combative behavior. Verbal consent obtained without difficulty.
--- NOTE | 2023-03-25 09:55 | P.CONS_ITS ---
History of Present Illness Consult details Date Patient Seen: 03/25/23 Time Patient Seen: 09:55 Chief complaint: blood in urine/stools black Narrative: Warern is a 72-year-old woman who has presented with melena. She was guaiac positive in the ER last night. She has a complicated medical history including liver transplant in her brain biopsy for a brain tumor. See the history and physical for more details. Her hemoglobin has been normal. Meds Home Medications and Allergies Home Medications Medication Instructions Recorded Confirmed Type amlodipine 2.5 mg tablet 2.5 mg PO DAILY blood pressure 03/24/23 03/24/23 History aspirin 81 mg tablet 81 mg PO DAILY 03/24/23 03/24/23 History dexamethasone 4 mg tablet 4 mg PO QID 03/24/23 03/24/23 History entecavir 0.5 mg tablet 0.5 mg PO DAILY 03/24/23 03/24/23 History ferrous sulfate 324 mg (65 mg 324 mg PO DAILY 03/24/23 03/24/23 History iron) tablet,delayed release mycophenolate mofetil 500 mg tablet 500 mg PO BID 03/24/23 03/24/23 History pantoprazole 40 mg tablet,delayed 40 mg PO DAILY 03/24/23 03/24/23 History release polyethylene glycol 3350 17 gram 17 g PO DAILY PRN Constipation 03/24/23 03/24/23 History oral powder packet (Miralax) rosuvastatin 10 mg tablet 10 mg PO QPM 03/24/23 03/24/23 History sennosides 8.6 mg tablet (senna) 17.2 mg PO BID PRN Constipation 03/24/23 03/24/23 History tacrolimus 0.5 mg capsule, 0.5 mg PO BID liver transplant 03/24/23 03/24/23 History immediate-release ursodiol 250 mg tablet 250 mg PO BID 03/24/23 03/24/23 History Allergies Allergy/AdvReac Type Severity Reaction Status Date / Time No Known Drug Allergies Allergy Verified 03/24/23 13:56 Exam Vital Signs (past 8 hours): - 03/25/23 04:40 03/25/23 08:25 03/25/23 09:50 Temperature 96.8 F L 97.1 F L Pulse Rate 60 61 Respiratory Rate 18 13 Blood Pressure 182/71 H 162/69 H Pulse Oximetry 95 99 97 Oxygen Delivery Method Room Air Room Air Oxygen Flow Rate 0 Oxygen Delivery Method Room Air Oxygen Flow Rate 0 Const General: No acute distress Resp Effort & Inspection: normal respiratory effort Objective Labs 03/25/23 04:40 03/25/23 04:40 Labs: Laboratory Results - last 24 hr 03/24/23 03/24/23 03/24/23 14:00 15:26 17:23 WBC 16.3 H RBC 5.05 Hgb 14.6 Hct 44.2 MCV 87.6 MCH 28.9 MCHC 33.0 RDW 13.2 Plt Count 140 L Neut % (Auto) 96.6 H Lymph % (Auto) 1.6 L [place] % (Auto) 1.6 L Eos % (Auto) 0.0 L Baso % (Auto) 0.2 Neut # (Auto) 00232 H Lymph # (Auto) 300 L [place] # (Auto) 300 Eos # (Auto) 0 Baso # (Auto) 0 PT 9.4 INR 0.8 L APTT 20 L Sodium 130 L Potassium 5.1 Chloride 98 Carbon Dioxide 27 BUN 49 H Creatinine 1.10 H Estimated GFR 53 L BUN/Creatinine Ratio 44.5 H Glucose 353 H Lactate 2.2 H 1.4 Calcium 9.2 Magnesium 3.2 H Total Bilirubin 1.9 H AST 36 ALT 41 H Alkaline Phosphatase 136 H Ammonia Total Creatine Kinase 61 Troponin I 0.021 Total Protein 6.2 L Albumin 3.5 Globulin 2.7 Albumin/Globulin Ratio 1.3 Procalcitonin 0.14 Urine Color Yellow Urine Appearance Cloudy Urine pH 5.0 Ur Specific [place] 1.025 Urine Protein Negative Urine Glucose (UA) 3+ H Urine Ketones Trace H Urine Occult Blood 3+ H Urine Nitrate Positive H Urine Bilirubin 1+ H Ur Bilirubin Confirm TNP Urine Urobilinogen 1.0 Ur Leukocyte Esterase 2+ H Urine RBC 10-30/hpf H Urine WBC 10-30/hpf H Ur Squamous Epith Cells 5-10 /hpf H Urine Bacteria Moderate (10-30) H RBC Casts 1-5/lpf H WBC Casts 1-5/lpf H Ur Culture Indicated? Specimen cultured Blood Type B Positive Antibody Screen Negative 03/25/23 04:40 WBC 9.8 RBC 4.46 Hgb 13.1 Hct 38.7 MCV 87.0 MCH 29.5 MCHC 33.9 RDW 12.8 Plt Count 108 L Neut % (Auto) 93.6 H Lymph % (Auto) 3.1 L [place] % (Auto) 3.1 Eos % (Auto) 0.0 L Baso % (Auto) 0.2 Neut # (Auto) 9200 H Lymph # (Auto) 300 L [place] # (Auto) 300 Eos # (Auto) 0 Baso # (Auto) 0 PT 10.2 INR 0.9 APTT Sodium 133 L Potassium 4.9 Chloride 104 Carbon Dioxide 27 BUN 41 H Creatinine 1.05 H Estimated GFR 56 L BUN/Creatinine Ratio 39.0 H Glucose 231 H D Lactate Calcium 8.9 Magnesium Total Bilirubin 1.4 H AST 25 ALT 36 H Alkaline Phosphatase 107 Ammonia < 9 L Total Creatine Kinase Troponin I Total Protein 5.4 L Albumin 2.9 L Globulin 2.5 Albumin/Globulin Ratio 1.2 Procalcitonin Urine Color Urine Appearance Urine pH Ur Specific [place] Urine Protein Urine Glucose (UA) Urine Ketones Urine Occult Blood Urine Nitrate Urine Bilirubin Ur Bilirubin Confirm Urine Urobilinogen Ur Leukocyte Esterase Urine RBC Urine WBC Ur Squamous Epith Cells Urine Bacteria RBC Casts WBC Casts Ur Culture Indicated? 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 If she has an ulcer and it was actively bleeding I will attempt to clip it or provide other hemostatic measures. If it is not actively bleeding I would recommend cessation of corticosteroids and aspirin. I will also biopsy the mucosa to rule out H pylori. I explained that the H pylori results would not be back for a week. Consent was obtained and she would like to proceed.
--- NOTE | 2023-03-25 10:12 | PM.OP.EGD ---
Operative Date/Time/Diagnoses Date of procedure: 03/25/23 Time of procedure: 10:12 Pre-op diagnosis: Melena Post-op diagnosis: same Procedure & Clinicians Study performed: Esophagogastroduodenoscopy Same procedure as scheduled: Yes Surgeon: Benito Denis Procedure Notes Procedure in detail: Surgeon: Benito Denis MD Anesthesia: Dia Sigala CRNA A timeout was performed. A bite blocked was placed. The patient was positioned in the left supine position. Anesthesia was administered. The endoscope was inserted through the bite block and passed through the esophagus and stomach and into the duodenum. There were multiple small ulcerations within the descending duodenal. Random biopsies were taken from the mucosa between the ulcers. The scope was withdrawn into the duodenal bulb and no abnormalities were seen. The scope was withdrawn into the stomach. There was moderate antritis and a few small antral ulcers. Random biopsies were taken from the antrum. TThe scope was retroflexed and some gastritis was seen in the fundus. Random biopsies were taken from the mucosa of the fundus. The scope was withdrawn into the esophagus and no other abnormalities were seen. The remainder of the esophagus was normal. The scope was withdrawn. The patient was awakened and brought to recovery. Sedation time: 15 minutes Findings: Small ulcers in the descending duodenal and antrum, gastritis Post-procedure Plan for aftercare: Discontinue dexamethasone and aspirin if possible Disposition: PACU
[2023-03-25] MEDS: LACTATED RINGERS 1,000 ML 120 ML IV (12:47)
[2023-03-25] MEDS: PANTOPRAZOLE 40 MG VIAL IV ×2 (12:50→22:53)
[2023-03-25] MEDS: cefTRIAXone 1,000 MG in SODIUM CHLORIDE 0.9% 100 ML 200 MG IV (17:30)
[2023-03-25] MEDS: dexAMETHasone 4 MG TABLET PO (17:30)
--- NOTE | 2023-03-25 17:41 | CM.DANOTE ---
Brief DCP Assessment NOte Patient is a 72yo F here following suspected GI bleed. EGD with Adeel on 03.25.23 showed small non-bleeding gastric ulcers. Hgb has been stable (PN, 03/25/23). Payer: Medicare and self pay PCP Phylicia Ferrer. MANAGER RESOURCE reviewed EMR. Per chart, pt speaks Tagalong. Per chart, pt lives with dtr in [place]. Two Dtrs in chart, Dior ([phone]) and Day ([phone]), unclear which dtr she lives with. PMH of liver transplant/tumor in brain. AMS- unclear if from brain tumor or something else. Per ED note, currently working with OP PT/speech therapy. Per PN, dtr will pick patient up late tomorrow for dc after work. Unable to meet with pt today due to triaging needs. Per provider/chart review/RN, no CM needs identified at this time. Plan: likely home tomorrow with dtr/caregiver support. Transport with dtr in POV. No additional CM needs identified at this time. CM team will follow as needed. ABDIAS Parks Discharge Planning/Care Management CM Discharge Assessment Start: 03/25/23 17:37 Freq: Status: Active Protocol: Document 03/25/23 17:37 GUNJAN (Rec: 03/25/23 17:41 [id number]) Discharge Planning Assessment Assigned White Lead Grinder ABDIAS Montero Advance Directives? No History Provided By Medical Record Household Members family Comment Home with family and caregiver support Discharge Plan Home Transportation Arrangement dtr in POV Referrals Initiated None needed Whiteboard Updated in Patient Room with No name and ext. # of White Lead Grinder Review Status In Process Next Review Type Continued Stay Review
[2023-03-26 04:43] VITALS: BP 143/72; PULSE 70; RESP 16; TEMP 37.5; O2SAT 100
[2023-03-26 04:54] LABS: Add Manual Diff / Slide Review NO; Basophils Absolute Auto 0 /uL (0-100); Basophils Percent Auto 0.1 % (0-2); Eosinophils Absolute Auto 0 /uL (0-450); Eosinophils Percent Auto 0.2 % (2-4); Hematocrit 39.5 % (36-46); Hemoglobin 13.5 g/dL (12.0-16.0); Lymphocytes Absolute Auto 500 /uL (1100-4500); Lymphocytes Percent Auto 4.8 % (25-40); Mean Corpuscular HGB Conc 34.3 % (30-36); Mean Corpuscular Hemoglobin 29.4 PG (26-34); Mean Corpuscular Volume 85.9 fL (80-100); Monocytes Absolute Auto 400 /uL (0-900); Monocytes Percent Auto 3.7 % (3-14); Neutrophils Absolute Auto 9100 /uL (1500-7000); Neutrophils Percent Auto 91.2 % (50-75); Platelet Count 101 X10^3/uL (150-400); Red Blood Cell Count 4.59 X10^6/uL (4.0-5.2); Red Cell Distribution Width 12.9 % (11.6-14.8)
[2023-03-26 05:05] LABS: BUN Creatinine Ratio 28.7 (6-22); Blood Urea Nitrogen 29 mg/dL (7-17); Carbon Dioxide 29 mmol/L (22-32); Chloride 103 mmol/L (98-107); Estimated Glomerular Filt Rate 59 mL/min (>60); Glucose 105 mg/dL (80-110); HEMOLYSIS < 15 (0-50); Potassium 4.3 mmol/L (3.4-5.1); Sodium 133 mmol/L (137-145)
--- NOTE | 2023-03-26 05:36 | PC.NURSE ---
pt combative with care, needed 3 people this am to change brief. BS this am up to 105. pt refusing all po meds. was able to give pt a sip of apple juice and small spoon of apple sauce. Bed alarm in place.
[2023-03-26 08:00] VITALS: BP 170/86; PULSE 77; RESP 12; TEMP 37.1; O2SAT 99
[2023-03-26] MEDS: PANTOPRAZOLE 40 MG VIAL IV (08:26)
[2023-03-26] MEDS: dexAMETHasone 4 MG TABLET PO (10:26)
[2023-03-26] MEDS: LACTULOSE 20 GM/30 ML SOLUTION PO (10:27)
[2023-03-26] MEDS: AMLODIPINE 5 MG TABLET 2.5 MG PO (10:27)
--- NOTE | 2023-03-26 10:30 | P.DS_ITS ---
History of Present Illness History of Present Illness Date Patient Seen: 03/24/23 Time Patient Seen: 22:05 Chief complaint: blood in urine/stools black Narrative: The pt was brought to the ER by her daughter who care for her due to having black stools when she went to the bathroom today. The pt only speaks Tagalog and family were not at the bedside during my interview. She was very confused and unable to answer any questions or follow commands. The pt's medical history is significant for having a liver transplant for chronic Hepatitis B and on immunosuppresents now and recently was diagnosed with a brain tumor, a aggressive form of gliosis. MRI in January showed a ring enhancing lesion and todays CT scan of the head reviewed by myself showed a 2.1 X 2.7 cm left periatal lesion significantly larger with surrounding edema. Discharge Providers Provider Date of admission: 03/24/23 19:33 Discharge Date: 03/26/23 Primary care physician: Phylicia Ferrer PA-C Discharge provider: Lionel Goodwin DO Summary Hospital Course Discharge Diagnosis: (1) Glioblastoma: Status: Acute (2) Acute UTI: Status: Acute (3) Hyponatremia: Status: Acute (4) Acute upper GI bleed: Status: Acute (5) Metabolic encephalopathy: Status: Acute Hospital Course: Admitted for melena and AMS. Found to have UTI which was treated with 3 days of IV abx. Non-bleeding ulcers found on EGD. Now on PPI BID. Aspirin stopped and Hgb remained stable. Cannot stop decadron due to brain tumor. Daughter updated over phone. Will take PPI BID for 1 month to heal ulcers then can take daily while on steroids. Discharged home to daughter. Exam Vital Signs (past 8 hours): - 03/26/23 04:43 03/26/23 08:00 Temperature 99.5 F 98.8 F Pulse Rate 70 77 Respiratory Rate 16 12 Blood Pressure 143/72 H 170/86 H Pulse Oximetry 100 99 Oxygen Flow Rate 0 0 Oxygen Delivery Method Room Air Oxygen Flow Rate 0 Narrative Exam Narrative: GEN: no acute distress, sleeping HEENT: moist mucous membranes, PERRL NECK: trachea midline, no JVD CV: regular rate and rhythm, no murmurs PULM: clear bilaterally ABD: soft, nontender, nondistended, no organomegaly EXT: warm and well perfused with no edema NEURO: confused, no focal deficits Objective Labs 03/26/23 04:35 03/26/23 04:35 Labs: Laboratory Results - last 24 hr 03/26/23 04:35 WBC 10.0 RBC 4.59 Hgb 13.5 Hct 39.5 MCV 85.9 MCH 29.4 MCHC 34.3 RDW 12.9 Plt Count 101 L Neut % (Auto) 91.2 H Lymph % (Auto) 4.8 L [place] % (Auto) 3.7 Eos % (Auto) 0.2 L Baso % (Auto) 0.1 Neut # (Auto) 9100 H Lymph # (Auto) 500 L [place] # (Auto) 400 Eos # (Auto) 0 Baso # (Auto) 0 Sodium 133 L Potassium 4.3 Chloride 103 Carbon Dioxide 29 BUN 29 H Creatinine 1.01 Estimated GFR 59 L BUN/Creatinine Ratio 28.7 H Glucose 105 D Calcium 9.0 PFSH Medical History (Updated 03/24/23 @ 22:13 by Jamie Miller MD) High cholesterol 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 We've stopped your aspirin and started you on a drug called protonix to help heal the ulcers. Please take this twice daily for 1 month, then daily afterward as long as you are on the dexamethasone as it protects your stomach from the steroid causing ulcers. Discharge orders & Medications Prescriptions: New pantoprazole [Protonix] 40 mg tablet,delayed release (DR/EC) 40 mg PO BID 30 Days Qty: 60 0RF Continued sennosides [senna] 8.6 mg Tablet 17.2 mg PO BID PRN (Reason: Constipation) polyethylene glycol 3350 [Miralax] 17 gram Powder In Packet 17 g PO DAILY PRN (Reason: Constipation) amlodipine 2.5 mg tablet 2.5 mg PO DAILY mycophenolate mofetil 500 mg tablet 500 mg PO BID pantoprazole 40 mg Tablet,Delayed Release (Dr/Ec) 40 mg PO DAILY dexamethasone 4 mg tablet 4 mg PO QID ursodiol 250 mg Tablet 250 mg PO BID tacrolimus 0.5 mg capsule 0.5 mg PO BID rosuvastatin 10 mg Tablet 10 mg PO QPM entecavir 0.5 mg tablet 0.5 mg PO DAILY ferrous sulfate 324 mg (65 mg iron) Tablet,Delayed Release (Dr/Ec) 324 mg PO DAILY Discontinued Adult Low Dose Aspirin 81 mg Tablet 81 mg PO DAILY Follow up/Referrals: Phylicia Ferrer PA-C [Primary Care Provider] - 2 Weeks Visit Report/Discharge Packet Stand Alone Forms: Patient Portal/API, Stroke Signs & Symptoms Discharge Data Primary Care Provider: Phylicia Ferrer
--- NOTE | 2023-03-26 11:44 | CM.DPC ---
DCP Discharge Home Per MD, pt medically stable for discharge home with family today and spoke with Dtr bedside and family inquiring about possible Hospice needs in the near future and CG agencies if pt continues to decline in her health with hx of brain CA. KIRAN met bedside with pt (understands Kyr[place] but primary language is Tagalong) and her adult Dtr and provided the [facility] brochure and discussed the basics about Hospice services and coverage and process of Info Visit to answer questions and provide more information. Dtr requested initial referral be faxed. SW also provided the [facility] Resource Guidebook and earmarked PP CG agency list and recommended calling a few for more specific information as well as the list of LTC facilities. Dtr very appreciative and states she has started making some phone calls for direction on possible options and how to best meet pt's needs once discharged. Dtr confirms she will transport pt home around lunchtime and will follow up with these resources. Plan: Patient to d/c home via Dtr POV today and provided resources for Hospice/Palliative and also LTC resources. ABDIAS Saldaña
--- NOTE | 2023-03-26 13:05 | PC.NURSE ---
Discharge Note Patient A&O, VSS, RA, no complaints of pain/discomfort. Discharge packet reviewed with patient's daughter, all questions/concerns addressed. PIV discontinued. Patient assisted to dress with patient's daughter. All belongings packed and given to patient along with discharge packet. Patient's daughter reminded to picket [employer] prescription at preferred pharmacy. Patient taken down via wheelchair to POV.
== END 2023-03-26 12:30 | disposition home or self-care (01) | DRG 377 ==
LOC: ED 18:28 → AC 03-25 13:36
PROVIDERS: Internal Medicine; Student in an Organized Health Care Education/Training Program; Surgery; Admitting Provider Family Medicine; Emergency Provider Emergency Medicine; PCP Physician Assistant Medical; Referring Provider Emergency Medicine; Visit Provider Family Medicine
PROC: 0DJ08ZZ Inspection of Upper Intestinal Tract, Via Natural or Artificial Opening Endoscopic (ICD-10-PCS; CPT 43235; principal; 2023-03-25 10:00)
DX: K25.4 Chronic or unspecified gastric ulcer with hemorrhage (principal); G93.41 Metabolic encephalopathy; C71.9 Malignant neoplasm of brain, unspecified; N39.0 Urinary tract infection, site not specified; E87.1 Hypo-osmolality and hyponatremia; D84.821 Immunodeficiency due to drugs; Z94.4 Liver transplant status; E78.5 Hyperlipidemia, unspecified; Z79.60 Long term (current) use of unspecified immunomodulators and immunosuppressants; R03.0 Elevated blood-pressure reading, without diagnosis of hypertension
CPT/HCPCS: 36415; 70450; 74177; 80048; 80053; 81001; 82140; 82550; 82962; 83605; 83735; 84145; 84484; 85025; 85610; 85730; 86850; 86900; 86901; 87040; 87077; 87086; 87186; 93005; 93010; 96365; 96375; 99285; C9113; J0696; J1100; J1815; J2704; Q9967